=== PATIENT | female | born 1960 | race Caucasian/White ===

== ENCOUNTER 2021-01-16 09:42 | Outpatient (REF) | payer OTHER, SELFPAY ==
[2021-01-16 10:39] LABS: MANUAL DIFF FLAG NO
[2021-01-16 10:54] LABS: Red Blood Count 4.52 X10*6/uL (4.20-5.50); White Blood Count 7.2 X10*3/uL (4.8-10.8)
[2021-01-16 10:55] LABS: Basophils Absolute Auto 0.1 X10*3/uL (0.0-0.2); Basophils Percent Auto 0.8 % (0-2); Eosinophils Absolute Auto 0.1 X10*3/uL (0.0-0.4); Eosinophils Percent Auto 0.8 % (0-4); Hematocrit 33.5 % (37-47); Hemoglobin 9.5 g/dl (12.0-16.0); Imm Gran Abs Auto 0.02 X10*3/uL (0.00-0.03); Imm Gran Pct Auto 0.3 % (0.0-0.4); Lymphocytes Absolute Auto 2.8 X10*3/uL (1.2-4.9); Lymphocytes Percent Auto 38.5 % (20-40); Mean Corpuscular HGB Conc 28.4 g/dl (31.0-35.0); Mean Corpuscular Volume 74.1 fL (80-98); Mean Platelet Volume 9.4 fL (9.4-12.3); Monocytes Absolute Auto 0.6 X10*3/uL (0.1-1.2); Monocytes Percent Auto 8.9 % (2-11); Neutrophils Absolute Auto 3.6 X10*3/uL (2.0-8.3); Neutrophils Percent Auto 50.7 % (45-73); Platelet Count 619 X10*3/uL (160-400); Red Cell Distribution Width 18.4 % (11.0-16.0)
[2021-01-16 11:00] LABS: Alanine Aminotransferase 21 U/L (0-31); Albumin Level 4.4 g/dL (3.5-5.0); Alkaline Phosphatase 131 U/L (39-117); Anion Gap 13 (12-20); Aspartate Amino Transferase 29 U/L (5-31); Bilirubin Total 0.2 mg/dL (0.0-1.0); Carbon Dioxide 27 mmol/L (22-29); Chloride 104 mmol/L (96-108); Cholesterol 219 mg/dL; Estimated Glomerular Filt Rate > 60; Glucose Fasting 81 mg/dL (60-99); HDL Cholesterol 76 mg/dL; LDL Cholesterol Calculated 123 mg/dl; Sodium 139 mmol/L (135-145); Total Protein 8.1 g/dL (6.5-8.0); Triglycerides 104 mg/dL
[2021-01-16 11:03] LABS: Blood Urea Nitrogen 7 mg/dL (9-16); Calcium 9.5 mg/dL (8.4-10.2)
[2021-01-16 11:14] LABS: TSH reflex Free T4 0.44 uIU/mL (0.32-4.0)
== END 2021-01-16 09:43 | disposition home or self-care (01) ==
LOC: HO.LAB 09:42
PROVIDERS: PCP Internal Medicine; Visit Provider Internal Medicine
DX: Z00.01 Encounter for general adult medical examination with abnormal findings (principal); G40.909 Epilepsy, unspecified, not intractable, without status epilepticus; E78.9 Disorder of lipoprotein metabolism, unspecified; D64.9 Anemia, unspecified; K64.4 Residual hemorrhoidal skin tags
CPT/HCPCS: 36415; 80053; 80061; 84443; 85025

== ENCOUNTER 2021-03-13 13:24 | Outpatient (REF) | payer OTHER, SELFPAY ==
--- NOTE | ~2021-03-13 | MM_ITS ---
EXAMINATION: MM SCREENING DIGITAL BREAST TOMOSYNTHESIS, BILATERAL CLINICAL INFORMATION: Screening. Asymptomatic. The lifetime risk of breast cancer based on the Tyrer-Cuzick Model is 8%. COMPARISON: Mammography: 01/19/2019, 06/19/2016 TECHNIQUE: Digital breast tomosynthesis is performed in both the craniocaudal and mediolateral oblique views along with computer-aided detection (CAD). Synthesized 2D images are generated from the tomosynthesis. FINDINGS: There are scattered areas of fibroglandular density (ACR BI-RADS breast composition Category b). There are no significant masses, abnormal calcifications, or other abnormalities. Parenchymal pattern is similar to prior exams. The axilla and skin contours are unremarkable. MM/MM tomosynthesis screening BI IMPRESSION: No mammographic evidence of malignancy. ASSESSMENT: BI-RADS 1: Negative RECOMMENDATION: Routine annual mammography screening. This patient's information was entered into a reminder system with a target due date for their next mammogram.
== END 2021-03-13 13:25 | disposition home or self-care (01) ==
LOC: HO.MAMMO 13:24
PROVIDERS: Visit Provider Internal Medicine
DX: Z12.31 Encounter for screening mammogram for malignant neoplasm of breast (principal)
CPT/HCPCS: 77063; 77067

== ENCOUNTER 2022-03-20 13:22 | Outpatient (REF) | payer OTHER, SELFPAY ==
--- NOTE | ~2022-03-20 | MM_ITS ---
EXAMINATION: MM SCREENING DIGITAL BREAST TOMOSYNTHESIS, BILATERAL CLINICAL INFORMATION: Screening. Asymptomatic. The lifetime risk of breast cancer based on the Tyrer-Cuzick Model is 8.6%. COMPARISON: Mammography: March 13, 2021 and studies dating back to September 09, 2012 TECHNIQUE: Digital breast tomosynthesis is performed in both the craniocaudal and mediolateral oblique views along with computer-aided detection (CAD). Synthesized 2D images are generated from the tomosynthesis. FINDINGS: There are scattered areas of fibroglandular density (ACR BI-RADS breast composition Category b). There are no significant masses, abnormal calcifications, or other abnormalities. MM/MM tomosynthesis screening BI IMPRESSION: There are no significant changes from prior study. ASSESSMENT: BI-RADS 1: Negative RECOMMENDATION: Routine annual mammography screening. This patient's information was entered into a reminder system with a target due date for their next mammogram.
== END 2022-03-20 13:23 | disposition home or self-care (01) ==
LOC: HO.MAMMO 13:22
PROVIDERS: Visit Provider Psychiatry & Neurology Neurology
DX: Z12.31 Encounter for screening mammogram for malignant neoplasm of breast (principal)
CPT/HCPCS: 77063; 77067

== ENCOUNTER 2023-03-23 13:20 | Outpatient (REF) | payer MEDICAID, SELFPAY ==
--- NOTE | ~2023-03-23 | MM_ITS ---
EXAMINATION: MM SCREENING DIGITAL BREAST TOMOSYNTHESIS, BILATERAL CLINICAL INFORMATION: Screening. Asymptomatic. Family history breast cancer, sister. The lifetime risk of breast cancer based on the Tyrer-Cuzick Model is 8%. COMPARISON: Mammography: 03/20/2022, 03/13/2021, 01/19/2019 TECHNIQUE: Digital breast tomosynthesis is performed in both the craniocaudal and mediolateral oblique views along with computer-aided detection (CAD). Synthesized 2D images are generated from the tomosynthesis. Additional right MLO view is provided. FINDINGS: There are scattered areas of fibroglandular density (ACR BI-RADS breast composition Category b). There are no significant masses, abnormal calcifications, or other abnormalities. Parenchymal pattern is similar to prior studies. There is no developing density or architectural abnormality. The axilla and skin contours are unremarkable. No significant changes. MM/MM tomosynthesis screening BI IMPRESSION: No mammographic evidence of malignancy. ASSESSMENT: BI-RADS 1: Negative RECOMMENDATION: Routine annual mammography screening. This patient's information was entered into a reminder system with a target due date for their next mammogram.
== END 2023-03-23 13:21 | disposition home or self-care (01) ==
LOC: HO.MAMMO 13:20
PROVIDERS: Visit Provider Internal Medicine
DX: Z12.31 Encounter for screening mammogram for malignant neoplasm of breast (principal)
CPT/HCPCS: 77063; 77067

== ENCOUNTER 2024-01-25 09:29 | Outpatient (AMB) | payer MEDICAID, SELFPAY ==
[2024-01-25 09:34] VITALS: BP 126/70; BMI 24.7
--- NOTE | 2024-01-25 09:34 | A.OFFPC_ITS ---
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 Accompanied by: Self / Same As Patient Allergies No Known Allergies Allergy (Verified 01/25/24 09:55) Medication List - Last Reconciled 01/25/24 by Mayelin Mcmahon MD phenobarbital 64.8 mg PO TID topiramate 50 mg PO DAILY Tobacco use date assessed: 01/25/24 Fall risk assessment: No Falls in past year Last assessed Fall Risk: 01/25/24 Dental Screening Dental Screen Date: 01/25/24 Did you have a dental visit in the last 12 months?: No Did you have a dental problem in the last 6 months where you did not have access to dental care?: No Was dental information given to patient?: Patient has dentist HPI HPI Comments History of Present Illness Details This is a 63-year-old female with seizures that comes for her physical exam. Last mammogram was March 2023 and has a mammogram scheduled for 2023. Last colonoscopy was 2019 and next colonoscopy should be 2024. Last Pap smear was 2018 and will be referred to OBGYN. Last seizure was November 2023 in which her mother was a witness. She said that she was taking her medications later than usual and this is why she had a seizure. She follows with Neurology. Denies any chest pain or shortness of breath. No change in bowel or bladder habits. Has never had a DEXA scan. [facility] Medical History (Updated 01/25/24 @ 12:04 by Mayelin Mcmahon MD) Anemia Epilepsy Anemia Hemorrhoids, external Lipid disorder Epilepsy Surgical History History of tubal ligation Family History Mother CAD (coronary artery disease) Sister Hypothyroidism History of breast cancer, Onset Age: 50 Brother No problems noted. Brother No problems noted. Brother No problems noted. Brother No problems noted. Brother No problems noted. Brother No problems noted. Brother No problems noted. Son No problems noted. Daughter No problems noted. Daughter No problems noted. Father Leukemia Social History Housing: Apartment Alcohol intake: never Patient Tobacco Use Status: Never used Tobacco e-Cigarette/Vaping Use: Never Used Second Hand Smoke Exposure: No service: No Current occupational status: employed Current occupational exposures/hazards: No Cognitive needs: No Hearing needs: No Vision needs: No Questionnaire PHQ-9 Over the last 2 weeks, how often have you been bothered by any of the following problems? 1. Little interest or pleasure in doing things: not at all 2. Feeling down, depressed, or hopeless: not at all 3. Trouble falling or staying asleep, or sleeping too much: not at all 4. Feeling tired or having little energy: not at all 5. Poor appetite or overeating: not at all 6. Feeling bad about yourself - or that you are a failure or have let yourself or your family down: not at all 7. Trouble concentrating on things, such as reading the newspaper or watching television: not at all 8. Moving or speaking so slowly that other people could have noticed. Or the opposite - being so fidgety or restless that you have been moving around a lot more than usual: not at all 9. Thoughts that you would be better off or of hurting yourself in some way: not at all Total score: 0 Depression Screening Interpretation: Negative Depression Screening Done: Yes 22660 - PHQ-9 Billing: Yes Source: Developed by Drs. Ashvin Kang, Anabella Armas, Monty Rausch and colleagues, with an educational chela from [employer]. Thrive Questionnaire Date Thrive assessed: 01/25/24 I am a: Patient What is your living situation today?: I have a steady place to live Within the past 12 months, did the food you bought not last and you didn't have the money to get more?: Never true Within the past 12 months, did you worry whether your food would run out before you got money to buy more?: Never true Do you have trouble paying for medicines?: No Do you have trouble getting transportation to medical appointments?: No Do you have trouble paying your heating and electricity bill?: No Do you have trouble taking care of your child, family member or friend?: No Do you have trouble with day-to-day activities such as bathing, preparing meals, shopping, managing finances, etc.?: No Are you currently unemployed and looking for a job?: No Are you interested in more education?: No Please select the resources that you would like help with: None Currently or been in a relationship where the following occur: no concerns reported THRIVE Score: 0 AUDIT C Alcohol Use Questionnaire (AUDIT-C) 1. How often do you have a drink containing alcohol?: Never Total Score: 0 RIKKI-7 AMB Questionnaire RIKKI-7 Date RIKKI - 7 assessed: 01/25/24 Feeling nervous, anxious, or on edge: 0 = Not at all Not being able to stop or control worryin = Not at all Worrying too much about different things: 0 = Not at all Trouble relaxin = Not at all Being so restless that it is hard to sit still: 0 = Not at all Becoming easily annoyed or irritable: 0 = Not at all Feeling afraid as if something awful might happen: 0 = Not at all Total RIKKI-7 score (0-4 normal; 5-9 mild; 10-14 moderate; 15-21 severe): 0 Source: Developed by Drs. Ashvin Kang, Anabella Armas, Monty Rausch and colleagues, with an educational chela from [employer]. RIKKI-7 Assessment Billing RIKKI-7 Assessment Tool: RIKKI-7 Assessment 42065 Review of Systems Const All systems reviewed & are unremarkable except as noted in HPI and below Eyes Reports no additional complaints, Denies change in vision and Denies other visual disturbances Card Denies chest pain at rest, Denies chest pain with activity, Denies edema, Denies irregular heart rhythm, Denies claudication, Denies dyspnea, Denies dyspnea on exertion, Denies orthopnea, Denies paroxysmal nocturnal dyspnea and Denies slow heart rate Resp Denies cough, Denies dyspnea and Denies dyspnea on exertion GI Denies abdominal pain, Denies change in bowel habits, Denies excessive flatus, Denies nausea and Denies vomiting Denies urinary incontinence, Denies urinary hesitancy and Denies urinary urgency Physical exam (Primary Care) Vital Signs: Last Vital Signs BP 126/70 01/25/24 09:34 BMI result Body Mass Index 24.7 Tobacco/Smoking Status: Tobacco use Status Tobacco use date assessed 01/25/24 01/25/24 09:40 Patient Tobacco Use Status Never used Tobacco 01/25/24 09:40 e-Cigarette/Vaping Use Never Used 01/25/24 09:40 PHQ-9: PHQ-9 Score PHQ-9: Total score 0 01/25/24 10:00 Depression Screening Interpretation: Negative Thrive Assessment: Date of Thrive Assessment Date Thrive assessed 01/25/24 01/25/24 09:40 Currently or been in a relationship where the following occur: no concerns reported Const Orientation/consciousness: patient oriented x3 HENMT Head: Yes normal to inspection, Yes normocephalic and Yes atraumatic Ears: external ears normal Eyes General: appearance normal, both eyes and all related structures Eyelids: Yes eyelids normal Conjunctivae: conjunctivae normal Neck Neck: Yes normal visual inspection and Yes supple Resp Effort & Inspection: normal respiratory effort Auscultation: clear to auscultation bilaterally Cardio Jugular venous distension: no JVD Rate: regular rate Rhythm: regular rhythm Heart sounds: S1 normal heart sound present and S2 normal heart sound present GI Inspection: Yes normal to inspection Palpation (GI): Soft to palpation and nontender Auscultation: normal bowel sounds Skin General skin exam: no rashes or lesions noted Neuro General: patient oriented x3 and no focal motor deficits Extrem General: Yes full ROM Psych Appearance: grossly normal Assessment and Plan Assessment & Plan (1) Physical exam: Code(s): Z00.00 - Encounter for general adult medical examination without abnormal findings Plan: Repeat in a year. (2) Epilepsy: Code(s): G40.909 - Epilepsy, unspecified, not intractable, without status epilepticus Qualifiers: Epilepsy type: generalized idiopathic Intractability: not intractable Status epilepticus: without status epilepticus Qualified Code(s): G40.309 - Generalized idiopathic epilepsy and epileptic syndromes, not intractable, without status epilepticus Plan: Continue phenobarbital. Follow-up with Neurology. Orders: Orders Lipid Panel Today E78.5 - Hyperlipidemia, unspecified, Z00.00 - Encounter for general adult medical examination without abnormal findings Comprehensive Page. 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
== END 2024-01-25 10:59 | disposition home or self-care (01) ==
PROVIDERS: PCP Internal Medicine; Visit Provider Internal Medicine
DX: Z00.00 Encounter for general adult medical examination without abnormal findings (principal); G40.309 Generalized idiopathic epilepsy and epileptic syndromes, not intractable, without status epilepticus
CPT/HCPCS: 99397

== ENCOUNTER 2024-02-25 08:34 | Outpatient (REF) | payer MEDICAID, SELFPAY ==
[2024-02-25 08:44] LABS: MANUAL DIFF FLAG NO
[2024-02-25 09:07] LABS: Basophils Absolute Auto 0.1 X10*3/uL (0.0-0.2); Basophils Percent Auto 0.8 % (0-2); Eosinophils Absolute Auto 0.2 X10*3/uL (0.0-0.4); Eosinophils Percent Auto 2.2 % (0-4); Hematocrit 30.8 % (37.0-47.0); Hemoglobin 9.1 g/dl (12.0-16.0); Imm Gran Abs Auto 0.03 X10*3/uL (0.00-0.03); Imm Gran Pct Auto 0.3 % (0.0-0.4); Lymphocytes Absolute Auto 2.7 X10*3/uL (1.2-4.9); Lymphocytes Percent Auto 29.7 % (20-40); Mean Corpuscular HGB Conc 29.5 g/dl (31.0-35.0); Mean Corpuscular Hemoglobin 21.5 pg (27.0-33.0); Mean Corpuscular Volume 72.8 fL (80.0-98.0); Mean Platelet Volume 8.8 fL (9.4-12.3); Monocytes Absolute Auto 0.7 X10*3/uL (0.1-1.2); Monocytes Percent Auto 7.2 % (2-11); Neutrophils Absolute Auto 5.5 x10*3/uL (2.0-8.3); Neutrophils Percent Auto 59.8 % (45-73); Platelet Count 663 X10*3/uL (160-400); Red Blood Count 4.23 X10*6/uL (4.20-5.50); Red Cell Distribution Width 18.5 % (11.0-16.0); White Blood Count 9.2 X10*3/uL (4.8-10.8)
[2024-02-25 09:39] LABS: Alanine Aminotransferase 18 U/L (0-31); Alkaline Phosphatase 138 U/L (39-117); Anion Gap 12 (12-20); Aspartate Amino Transferase 27 U/L (5-31); Bilirubin Total 0.2 mg/dL (0.0-1.0); Blood Urea Nitrogen 7 mg/dL (9-16); Calcium 9.2 mg/dL (8.4-10.2); Carbon Dioxide 26 mmol/L (22-29); Chloride 106 mmol/L (96-108); Cholesterol 233 mg/dL (<200); Estimated Glomerular Filt Rate > 60; Glucose Fasting 87 mg/dL (60-99); HDL Cholesterol 67 mg/dL (>40); Iron 16 mcg/dL (30-160); LDL Cholesterol Calculated 142 mg/dL (<100); Percent Iron Saturation 5 % (15-50); Potassium 4.2 mmol/L (3.3-5.1); Sodium 140 mmol/L (135-145); Total Iron Binding Capacity 329 mcg/dL (228-428); Total Protein 8.4 g/dL (6.5-8.0); Triglycerides 122 mg/dL (<150); Unsaturated Iron Binding 313 ug/dL
[2024-02-25 09:55] LABS: Vitamin D 25-OH Total 14.3 ng/mL (>30)
[2024-02-25 11:18] LABS: Folate 14.2 ng/mL (> or = 4.0); Vitamin B12 503 pg/mL (200-900)
== END 2024-02-25 08:35 | disposition home or self-care (01) ==
LOC: HO.LAB 08:34
PROVIDERS: PCP Internal Medicine; Visit Provider Internal Medicine
DX: Z00.00 Encounter for general adult medical examination without abnormal findings (principal); D64.9 Anemia, unspecified; E78.5 Hyperlipidemia, unspecified; E53.8 Deficiency of other specified B group vitamins; E55.9 Vitamin D deficiency, unspecified; G40.909 Epilepsy, unspecified, not intractable, without status epilepticus
CPT/HCPCS: 36415; 80053; 80061; 80184; 82306; 82607; 82746; 83540; 85025

== ENCOUNTER → 2024-03-24 13:00 | Outpatient (BNV) | payer MEDICAID, SELFPAY | PROVIDERS: PCP Internal Medicine; Visit Provider Radiology Diagnostic Radiology | DX: Z12.31 Encounter for screening mammogram for malignant neoplasm of breast (principal) | CPT/HCPCS: 77063; 77067 ==

== ENCOUNTER 2024-03-24 13:05 | Outpatient (REF) | payer MEDICAID, SELFPAY | END 2024-03-24 13:06 | disposition home or self-care (01) | LOC: HO.MAMMO 13:05 | PROVIDERS: PCP Internal Medicine; Visit Provider Internal Medicine | DX: Z12.31 Encounter for screening mammogram for malignant neoplasm of breast (principal) | CPT/HCPCS: 77063; 77067 ==

== ENCOUNTER 2024-04-29 11:29 | Outpatient (REF) | payer MEDICAID, SELFPAY ==
--- NOTE | ~2024-04-29 | MM_ITS ---
EXAMINATION: BONE DENSITOMETRY CLINICAL INDICATION: Unspecified menopausal and perimenopausal disorder. COMPARISON: This is the patient's baseline examination. TECHNIQUE: Using a [employer] DXA System (software version: 13.1) manufactured by [employer], dual-energy x-ray absorptiometry was performed of the lumbar spine and left hip. The images are of good technical quality. Summary results are attached. FINDINGS: LEFT FEMUR, NECK: BMD 0.726 g/cm2, Z-score -0.6, T-score -2.2, osteopenia. LEFT FEMUR, TOTAL: BMD 0.814 g/cm2, Z-score -0.1, T-score -1.5, osteopenia. AP SPINE L1-L4: BMD 1.089 g/cm2, Z-score 1.0, T-score -0.8, normal. IDENTIFIED RISK FACTORS: Menopause. HISTORY OF FRACTURE: None listed. MEDICATIONS: Calcium, vitamin D. MM/XR DEXA axial skeleton IMPRESSION: 1. DIAGNOSIS: Osteopenia based on the lowest T-score value of -2.2 in the femoral neck applying World Health Organization criteria. 2. 10-YEAR FRACTURE RISK PREDICTION, FRAX: Major osteoporotic fracture (clinical spine, forearm, hip or shoulder) 6.8%. Hip fracture 1.3%. 3. Treatment Recommendations: NOF guidelines recommend consideration for treatment in postmenopausal women and men age 50 and older presenting with the following: -A hip or vertebral (clinical or morphometric) fracture. -T-score less than or equal to -2.5 at the femoral neck or spine after appropriate evaluation to exclude secondary causes. -Low bone mass at the hip or spine and a 10-year fracture probability by FRAX of greater than or equal to 3% for hip fracture or greater than or equal to 20% for major osteoporotic fracture based on the [place] adapted WHO algorithm. 4. Other Recommendations: All treatment decisions require clinical judgment and consideration of individual patient factors, including patient preferences, comorbidities, previous drug use, risk factors not captured in the FRAX model (e.g. frailty, falls, vitamin D deficiency, increased bone turnover, interval significant decline in bone density) and possible under or overestimation of fracture risk by FRAX. Additional medical evaluation for secondary cause of low bone mineral density may be appropriate. FUTURE SCAN RECOMMENDATION: People with diagnosed cases of osteoporosis or at high risk for fracture should have regular bone mineral density tests. For patients eligible for Medicare, routine testing is allowed once every 2 years. The testing frequency can be increased to one year for patients who have rapidly progressing disease, those who are receiving or discontinuing medical therapy to restore bone mass, or have additional risk factors.
== END 2024-04-29 11:30 | disposition home or self-care (01) ==
LOC: HO.MAMMO 11:29
PROVIDERS: PCP Internal Medicine; Visit Provider Internal Medicine
DX: Z13.820 Encounter for screening for osteoporosis (principal); Z78.0 Asymptomatic menopausal state
CPT/HCPCS: 77080

== ENCOUNTER 2024-06-01 12:55 | Outpatient (AMB) | payer MEDICAID, SELFPAY ==
--- NOTE | 2024-06-01 13:00 | A.OFFVIS_ITS ---
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 She is doing well with no concerns. Attempting to eat a healthy diet with calcium and vitamin D and stays active with exercise-walks and climbs stair at home. Currently not sexually active. Denies any vaginal dryness or irritation. STI testing offered; she declined. Last pap smear; 2018. Last mammogram; 2023. Colonoscopy is UTD. Denies any family history of ovarian or colon cancer. FH breast cancer-sister. [facility] Medical History Anemia Epilepsy Anemia Hemorrhoids, external Lipid disorder Epilepsy Surgical History History of tubal ligation Family History Mother CAD (coronary artery disease) Sister Hypothyroidism History of breast cancer, Onset Age: 50 Brother No problems noted. Brother No problems noted. Brother No problems noted. Brother No problems noted. Brother No problems noted. Brother No problems noted. Brother No problems noted. Son No problems noted. Daughter No problems noted. Daughter No problems noted. Father Leukemia Social History Housing: Apartment Alcohol intake: never Patient Tobacco Use Status: Never used Tobacco e-Cigarette/Vaping Use: Never Used Second Hand Smoke Exposure: No service: No Current occupational status: employed Current occupational exposures/hazards: No Cognitive needs: No Hearing needs: No Vision needs: No Female Reproductive History Menstrual Menopause type: natural Total pregnancies: 3 Full term: 3 Number of Living Children: 3 Date of last pap smear: 12/14/18 (neg pap and hpv) Date of Mammogram: 03/24/24 (Birad 1) Date of last Bone Density Screenin04/29/24 Review of Systems Const All systems reviewed & are unremarkable except as noted in HPI and below Reports as per HPI Eyes Reports no additional complaints ENT Reports no additional complaints Card Reports no additional complaints Resp Reports no additional complaints GI Reports as per HPI and Reports no additional complaints Reports as per HPI Musc Reports no additional complaints Skin/Breast Reports as per HPI Neuro Reports no additional complaints Psych Reports no additional complaints Endo Reports no additional complaints Victor Hugo/Lymph Reports no additional complaints Aller/Immun Reports no additional complaints Physical Exam Vital Signs: Last Vital Signs BP 114/72 06/01/24 13:02 BMI result Body Mass Index 25.1 Const General: cooperative, healthy appearing, no acute distress, well developed and alert Orientation/consciousness: patient oriented x3 HEENT Head: Yes normal to inspection Eyes General: appearance normal, both eyes and all related structures Neck Neck: Yes normal visual inspection Thyroid: Thyroid normal Chest Chest palpation & inspection: normal inspection of the chest and other (no puckering, dimpling, peau de orange, retraction, discharge, masses) Breast/axilla inspection: normal inspection of the breasts Breast/axilla palpation: normal palpation of the breasts Resp Effort & Inspection: normal respiratory effort GI Inspection: Yes normal to inspection Palpation (GI): Soft to palpation Rectal Exam - Female: deferred General: Yes bladder normal to palpation External Female Exam: normal external appearance and normal appearance of the urethra Speculum Exam - Vagina: normal appearance of the vagina, normal palpation, normal vaginal discharge and vagina atrophic Speculum Exam - Cervix: normal appearance of the cervix and normal palpation Bimanual exam- vagina & uterus: normal bimanual exam, normal palpation, uterine size normal, bladder normal to palpation, normal palpation and non-tender Bimanual Exam- Adnexa, other: no masses Skin General skin exam: no rashes or lesions noted Rashes: no rashes Neuro General: patient oriented x3 Cognition (Neuro): normal cognition Extrem General: Yes normal to inspection Psych Attitude: cooperative Thought process: Normal thought process present Assessment & Plan Assessment & Plan (1) Encounter for annual routine gynecological examination: Code(s): Z01.419 - Encounter for gynecological examination (general) (routine) without abnormal findings Category: Medical Plan Discussed: Current recommendations for pap smears per ASCCP guidelines. Breast awareness, periodic self breast exams and yearly mammogram. Maintain a healthy lifestyle, well balanced diet including Calcium 1,200 mg and Vitamin D 600 IU daily, and routine exercise. Contact the office with any postmenopausal bleeding. Patient verbalizes understanding and agrees to the plan of care. She was given opportunity to ask questions and all questions were answered to the best of my ability. RTO in 1 year for annual repairer switchgear exam. This note is constructed using voice recognition software. While every effort has been made to ensure accuracy, chemical librarian errors may have been included. Coding Level of Care Code Est Pt Prev Care >65y(06675) Diagnoses Encounter for annual routine gynecological examination Z01.419
[2024-06-01 13:02] VITALS: BP 114/72; BMI 25.1
== END 2024-06-01 13:43 | disposition home or self-care (01) ==
LOC: HO.HWS 12:55
PROVIDERS: PCP Internal Medicine; Visit Provider Advanced Practice Midwife
DX: Z01.419 Encounter for gynecological examination (general) (routine) without abnormal findings (principal)
CPT/HCPCS: 99397

== ENCOUNTER → 2024-06-01 12:55 | Outpatient (BNVA) | payer MEDICAID, SELFPAY | PROVIDERS: PCP Internal Medicine; Visit Provider Advanced Practice Midwife | DX: Z01.419 Encounter for gynecological examination (general) (routine) without abnormal findings (principal) | CPT/HCPCS: 99397 ==

== ENCOUNTER 2024-07-26 11:03 | Outpatient (AMB) | payer MEDICAID, SELFPAY ==
[2024-07-26 11:07] VITALS: BP 120/60; PULSE 88; O2SAT 98; BMI 25.8
--- NOTE | 2024-07-26 11:07 | A.OFFPC_ITS ---
Vital Signs 07/26/24 11:07 Height 5 ft 2 in Weight 141 lb BMI 25.8 BP 120/60 Blood Pressure Location Lt brachial Position Sitting Pulse 88 Pulse Source Pulse Oximeter Pulse Oximetry (%) 98 Oxygen Delivery Method Room Air Intake Visit Reasons: seizures Clinical Supervisor Required: No Accompanied by: Self / Same As Patient Allergies No Known Allergies Allergy (Verified 07/26/24 11:25) Medication List - Last Reconciled 07/26/24 by Mayelin Mcmahon MD cholecalciferol (vitamin D3) 50 mcg PO DAILY 90 days ferrous sulfate 325 mg PO DAILY 90 days phenobarbital 64.8 mg PO TID topiramate 50 mg PO DAILY Tobacco use date assessed: 01/25/24 Fall risk assessment: No Falls in past year Last assessed Fall Risk: 07/26/24 Dental Screening Dental Screen Date: 01/25/24 HPI HPI Comments History of Present Illness Details This is a 64-year-old female with epilepsy, anemia and low vitamin-D that comes today for follow-up on her conditions. Has not had a seizure in over 6 months and this is follow by Neurology. On ferrous sulfate for anemia she denies any active bleeding. CBC and vitamin-D will be ordered. On vitamin-D supplements for her low vitamin-D. Denies any chest pain or shortness on breath. [facility] Medical History (Updated 07/26/24 @ 11:43 by Mayelin Mcmahon MD) Anemia Epilepsy Anemia Hemorrhoids, external Lipid disorder Epilepsy Surgical History History of tubal ligation Family History Mother CAD (coronary artery disease) Sister Hypothyroidism History of breast cancer, Onset Age: 50 Brother No problems noted. Brother No problems noted. Brother No problems noted. Brother No problems noted. Brother No problems noted. Brother No problems noted. Brother No problems noted. Son No problems noted. Daughter No problems noted. Daughter No problems noted. Father Leukemia Social History Housing: Apartment Alcohol intake: never Patient Tobacco Use Status: Never used Tobacco e-Cigarette/Vaping Use: Never Used Second Hand Smoke Exposure: No service: No Current occupational status: employed Current occupational exposures/hazards: No Cognitive needs: No Hearing needs: No Vision needs: No Questionnaire Thrive Questionnaire Date Thrive assessed: 01/25/24 AUDIT C Alcohol Use Questionnaire (AUDIT-C) 1. How often do you have a drink containing alcohol?: Never 3. How often do you have six or more drinks on one occasion?: Never Total Score: 0 Score Reviewed/Action Taken: No RIKKI-7 AMB Questionnaire RIKKI-7 Date RKIKI - 7 assessed: 01/25/24 Source: Developed by Drs. Ashvin Kang, Anabella Armas, Monty Rausch and colleagues, with an educational chela from [employer]. Review of Systems Const All systems reviewed & are unremarkable except as noted in HPI and below Card Denies chest pain at rest, Denies chest pain with activity, Denies edema, Denies irregular heart rhythm, Denies claudication, Denies dyspnea, Denies dyspnea on exertion, Denies orthopnea, Denies paroxysmal nocturnal dyspnea and Denies slow heart rate Resp Denies cough, Denies dyspnea and Denies dyspnea on exertion GI Denies abdominal pain, Denies change in bowel habits, Denies excessive flatus, Denies nausea and Denies vomiting Physical exam (Primary Care) Vital Signs: Last Vital Signs Pulse 88 07/26/24 11:07 BP 120/60 07/26/24 11:07 Pulse Ox 98 07/26/24 11:07 Oxygen Delivery Method Room Air 07/26/24 11:07 BMI result Body Mass Index 25.8 Tobacco/Smoking Status: Tobacco use Status Tobacco use date assessed 01/25/24 07/26/24 11:07 Patient Tobacco Use Status Never used Tobacco 07/26/24 11:07 e-Cigarette/Vaping Use Never Used 07/26/24 11:07 Thrive Assessment: Date of Thrive Assessment Date Thrive assessed 01/25/24 07/26/24 11:07 Resp Effort & Inspection: normal respiratory effort Auscultation: clear to auscultation bilaterally Cardio Jugular venous distension: no JVD Rate: regular rate Rhythm: regular rhythm Heart sounds: S1 normal heart sound present and S2 normal heart sound present Extrem General: Yes full ROM Coding Level of Care Code Est Pt Level 3 (40687) Complex EM visit Add On G2211 Diagnoses Nonintractable generalized idiopathic epilepsy without status epilepticus G40.309 Epilepsy type: generalized idiopathic Intractability: not intractable Status epilepticus: without status epilepticus Anemia D64.9 Hypovitaminosis D E55.9 Time Spent (min) 19 Assessment & Plan Assessment & Plan (1) Epilepsy: Code(s): G40.909 - Epilepsy, unspecified, not intractable, without status epilepticus Category: Medical Qualifiers: Epilepsy type: generalized idiopathic Intractability: not intractable Status epilepticus: without status epilepticus Qualified Code(s): G40.309 - Generalized idiopathic epilepsy and epileptic syndromes, not intractable, without status epilepticus Plan: Continue phenobarbital. Follow-up with Neurology. (2) Anemia: Code(s): D64.9 - Anemia, unspecified Category: Medical Plan: Continue ferrous sulfate. Repeat CBC. (3) Hypovitaminosis D: Code(s): E55.9 - Vitamin D deficiency, unspecified Category: Medical Plan: Continue vitamin-D supplements. Orders: Orders Complete Blood Count Auto Diff Today D64.9 - Anemia, unspecified Vitamin D 25-OH Total Today E55.9 - Vitamin D deficiency, unspecified Comprehensive Met. Panel Today G40.309 - Generalized idiopathic epilepsy and epileptic syndromes, not intractable, without status epilepticus IRON PROFILE Today D64.9 - Anemia, unspecified
== END 2024-07-26 11:31 | disposition home or self-care (01) ==
PROVIDERS: PCP Internal Medicine; Visit Provider Internal Medicine
DX: G40.309 Generalized idiopathic epilepsy and epileptic syndromes, not intractable, without status epilepticus (principal); D64.9 Anemia, unspecified; E55.9 Vitamin D deficiency, unspecified

== ENCOUNTER → 2024-07-26 11:03 | Outpatient (BNVA) | payer MEDICAID, SELFPAY | PROVIDERS: PCP Internal Medicine; Visit Provider Internal Medicine | DX: G40.309 Generalized idiopathic epilepsy and epileptic syndromes, not intractable, without status epilepticus (principal); D64.9 Anemia, unspecified; E55.9 Vitamin D deficiency, unspecified | CPT/HCPCS: 99212 ==

== ENCOUNTER 2025-02-04 08:33 | Emergency (ER) | payer MEDICAID, SELFPAY ==
[2025-02-04 08:40] VITALS: BP 138/69; PULSE 94; RESP 16; TEMP 36.3; O2SAT 98; BMI 26.2
--- NOTE | 2025-02-04 08:49 | ED.GENADULT ---
HPI - General Adult General Chief complaint: General Medical Stated complaint: medication Time Seen by Provider: 02/04/25 08:38 Source: patient Mode of arrival: ambulatory Limitations: no limitations History of Present Illness ED Provider: Teodora Gerard NP HPI narrative: Patient is a 65-year-old female with past medical history of epilepsy who presents emergency department requesting assistance with refill of her phenobarbital. She reports that she ran out of the medication yesterday she only took 1 tablet she was supposed to take it 3 times daily. She states that she has not had a seizure in many months but is quite sensitive with any missed doses she has a high chance of seizure occurrence. She has ran out of refills at the pharmacy and her primary care doctor's office is closed as it is the weekend. She offers no physical complaints at this time Related Data Home Medications ?Medication ?Instructions ?Recorded ?Confirmed phenobarbital 64.8 mg tablet 64.8 mg PO TID 01/11/21 07/26/24 topiramate 50 mg tablet 50 mg PO DAILY 01/11/21 07/26/24 Previous Rx's ?Medication ?Instructions ?Recorded cholecalciferol (vitamin D3) 50 50 mcg PO DAILY 90 days #90 caps 02/28/24 mcg (2,000 unit) capsule ferrous sulfate 325 mg (65 mg 325 mg PO DAILY 90 days #90 tabs 09/05/24 iron) tablet phenobarbital 64.8 mg tablet 64.8 mg PO TID #9 tabs 02/04/25 Allergies Allergy/AdvReac Type Severity Reaction Status Date / Time No Known Allergies Allergy Verified 02/04/25 08:42 Review of Systems Review of Systems: Yes all other systems are reviewed and are negative [facility] Past Medical History Attestation statement: The following information was validated with the patient. Source: old records reviewed Medical History Anemia Epilepsy Anemia Hemorrhoids, external Lipid disorder Epilepsy Surgical History History of tubal ligation Family History Family History Mother CAD (coronary artery disease) Sister Hypothyroidism History of breast cancer, Onset Age: 50 Brother No problems noted. Brother No problems noted. Brother No problems noted. Brother No problems noted. Brother No problems noted. Brother No problems noted. Brother No problems noted. Son No problems noted. Daughter No problems noted. Daughter No problems noted. Father Leukemia Social History Social History Housing: Apartment Alcohol intake: never Patient Tobacco Use Status: Never used Tobacco e-Cigarette/Vaping Use: Never Used Second Hand Smoke Exposure: No Advance Directives: No Advance Directives Information Provided: No service: No Current occupational status: employed Current occupational exposures/hazards: No Cognitive needs: No Hearing needs: No Vision needs: No Physical Exam ED Vital Signs: Vital Signs - 24 hr 02/04/25 08:40 02/04/25 09:35 Temperature 97.4 F 97.4 F Pulse Rate 94 94 Respiratory Rate 16 16 Blood Pressure 138/69 138/69 Pulse Oximetry 98 98 Oxygen Delivery Method Room Air Room Air BMI result Body Mass Index 26.2 Appearance: Alert.?Oriented to person, place and time. No acute distress.?Normal affect. Eyes: Pupils equal, round and reactive to light.? CVS: Heart sounds normal. Normal heart rate and rhythm.? Pulses normal.?? Respiratory: No respiratory distress.? Lung sounds clear to auscultation bilaterally?? Skin: Skin warm and dry.? Normal skin color.? ? Extremities: No lower extremity edema.? Neuro: Moves all extremities spontaneously. Sensation intact bilaterally. No focal neuro deficits. Ambulates with normal steady gait. Medications Administered Discontinued Medications Generic Name Dose Route Start Last Admin Trade Name Severianoq PRN Reason Stop Dose Admin Phenobarbital 67.5 mg 02/04/25 09:30 02/04/25 09:30 Phenobarbital 15 Mg Tablet PO 02/04/25 09:31 67.5 mg ONCE ONE Administration Medical Decision Making Medical Decision Making MDM Narrative: Patient is a 65-year-old female with past medical history of epilepsy, anemia, hyperlipidemia who presents emergency department for assistance with medication refill as per HPI. On review of [employer] she last filled her phenobarbital 64.8 mg on 01/03/2025 with a total supply 90 tablets to last for 30 days. Meeting that she would have ran out of the medication yesterday as you mentioned in HPI. She does not have any further refills at the pharmacy and unfortunately given the weekend her primary care doctor's office is closed. She received a dose of her phenobarbital in the emergency department. I have sent a prescription to the pharmacy to cover her through Thursday. She has been advised that she needs to contact your primary care doctor's office directly 1st thing Thursday morning to arrange for assistance with further prescription refill. She offers no physical complaints and her physical examination at this point is 9. All questions answered. Stable for discharge Differential Diagnosis Differential Diagnoses: The differential diagnosis associated with the presentation includes (Epilepsy, seizure disorder, medication refill) Independent Historian Clinical information obtained from an independent historian. History obtained from or confirmed by: Other (Daughter) External Record Review External record reviewed: Other I attest that I have reviewed patients [place], and at the time prescribing the patient a controlled substance is appropriate based off of patients diagnosis and treatment plan. Chronic Conditions Patient?s care impacted by: Other (See narrative above) Discharge Plan Discharge Clinical Impression: Epilepsy Patient Disposition: Home, Self-Care Instructions: Epilepsy (ED) Additional Instructions: You were evaluated in the emergency department requesting assistance with your phenobarbital prescription. Pharmacy records indicate that your prescription was last filled on 01/03/2025 of which you take 3 times daily. It makes sense that you would have ran out of this medication yesterday. You were provided with a dose in the emergency department today. A prescription has been sent for an additional 8 tablets which should cover you through the day on Thursday. This is a controlled medication. It is recommended that you call your primary care doctor's office first thing Thursday to arrange for follow-up/ medication re-fill Prescriptions: New phenobarbital 64.8 mg tablet 64.8 mg PO TID Qty: 9 0RF No Action cholecalciferol (vitamin D3) 50 mcg (2,000 unit) capsule 50 mcg PO DAILY 90 Days Qty: 90 3RF ferrous sulfate 325 mg (65 mg iron) tablet 325 mg PO DAILY 90 Days Qty: 90 1RF topiramate 50 mg tablet 50 mg PO DAILY phenobarbital 64.8 mg tablet 64.8 mg PO TID Referrals: Mayelin Ivory MD [Primary Care Provider] - Interventions: ED Discharge Assessment Last Done: 02/04/25 09:35 Discharge Date/Time: 02/04/25 09:36 Print Language: Estonian
[2025-02-04] MEDS: PHENobarbitaL 15 MG TABLET 67.5 MG PO (09:30)
[2025-02-04 09:35] VITALS: BP 138/69; PULSE 94; RESP 16; TEMP 36.3; O2SAT 98
== END 2025-02-04 09:36 | disposition home or self-care (01) ==
PROVIDERS: Emergency Provider Emergency Medicine; PCP Internal Medicine
DX: G40.909 Epilepsy, unspecified, not intractable, without status epilepticus (principal); Z76.0 Encounter for issue of repeat prescription; Z79.899 Other long term (current) drug therapy
CPT/HCPCS: 99282; 99283

== ENCOUNTER 2025-02-06 09:20 | Outpatient (AMB) | payer OTHER, MEDICAID, SELFPAY ==
--- NOTE | 2025-02-06 09:27 | MHC.PC.OV ---
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 by: Grand Child Allergies No Known Allergies Allergy (Verified 02/06/25 09:52) Medication List - Last Reconciled 02/06/25 by Mayelin Mcmahon MD phenobarbital 64.8 mg PO TID topiramate 50 mg PO DAILY Tobacco use date assessed: 02/06/25 Fall risk assessment: No Falls in past year Last assessed Fall Risk: 02/06/25 Dental Screening Dental Screen Date: 02/06/25 Did you have a dental visit in the last 12 months?: No Did you have a dental problem in the last 6 months where you did not have access to dental care?: No Was dental information given to patient?: Patient has dentist HPI HPI Comments History of Present Illness Details The patient is a 65-year-old female presenting with the need for a yearly physical exam and concerns regarding her seizure medication management. She experienced dizziness recently due to an incomplete refill of phenobarbital, but no seizure activity occurred during this period. Examination of her medication history reveals that she receives both phenobarbital and topiramate as part of her seizure management regimen, but she has not engaged in recent neurological follow-up. Her immunization record is up to date except for the pneumococcal vaccine, which is recommended due to her age. Recent health screenings show compliance with mammography and bone density scanning schedules. Additionally, her colonoscopy is due this year with plans to schedule accordingly. Her family history reveals significant cardiovascular disease and a history of cancer, specifically hematologic in her father. The patient has previously shown signs of anemia, with ongoing investigation and identification of hyperlipidemia. Lifestyle adjustments include taking daily multivitamins to address slight deficiencies noted in her prior bloodwork. - Annual physical exam conducted. - Tetanus vaccine administered in 2016; next due in 2026. - Pneumococcal vaccine recommended due to age; patient informed. - Mammogram completed last summer; ongoing follow-up scheduled for this year. - Bone density test to be scheduled for 2025. - Colonoscopy was last done in 2019; recommended to be repeated this year. - Lab results indicate low hemoglobin and elevated cholesterol; vitamin supplementation discussed. [facility] Medical History Anemia Epilepsy Anemia Hemorrhoids, external Lipid disorder Epilepsy Surgical History History of tubal ligation Family History Mother CAD (coronary artery disease) Sister Hypothyroidism History of breast cancer, Onset Age: 50 Brother No problems noted. Brother No problems noted. Brother No problems noted. Brother No problems noted. Brother No problems noted. Brother No problems noted. Brother No problems noted. Son No problems noted. Daughter No problems noted. Daughter No problems noted. Father Leukemia Social History Housing: Apartment Alcohol intake: never Patient Tobacco Use Status: Never used Tobacco e-Cigarette/Vaping Use: Never Used Second Hand Smoke Exposure: No service: No Current occupational status: employed Current occupational exposures/hazards: No Cognitive needs: No Hearing needs: No Vision needs: No Questionnaire PHQ-9 Over the last 2 weeks, how often have you been bothered by any of the following problems? 1. Little interest or pleasure in doing things: not at all 2. Feeling down, depressed, or hopeless: not at all 3. Trouble falling or staying asleep, or sleeping too much: not at all 4. Feeling tired or having little energy: not at all 5. Poor appetite or overeating: not at all 6. Feeling bad about yourself - or that you are a failure or have let yourself or your family down: not at all 7. Trouble concentrating on things, such as reading the newspaper or watching television: not at all 8. Moving or speaking so slowly that other people could have noticed. Or the opposite - being so fidgety or restless that you have been moving around a lot more than usual: not at all 9. Thoughts that you would be better off or of hurting yourself in some way: not at all Total score: 0 Depression Screening Interpretation: Negative Depression Screening Done: Yes 83039 - PHQ-9 Billing: Yes Source: Developed by Drs. Ashvin Kang, Anabella Armas, Monty Rausch and colleagues, with an educational chela from [employer]. Thrive Questionnaire Date Thrive assessed: 02/06/25 I am a: Patient What is your living situation today?: I have a steady place to live Within the past 12 months, did the food you bought not last and you didn't have the money to get more?: Never true Within the past 12 months, did you worry whether your food would run out before you got money to buy more?: Never true Do you have trouble paying for medicines?: I choose not to answer this question Do you have trouble getting transportation to medical appointments?: I choose not to answer this question Do you have trouble paying your heating and electricity bill?: No Do you have trouble taking care of your child, family member or friend?: No Do you have trouble with day-to-day activities such as bathing, preparing meals, shopping, managing finances, etc.?: No Are you currently unemployed and looking for a job?: No Are you interested in more education?: No Please select the resources that you would like help with: None Currently or been in a relationship where the following occur: No concerns reported THRIVE Score: 0 AUDIT C Alcohol Use Questionnaire (AUDIT-C) 1. How often do you have a drink containing alcohol?: Never Total Score: 0 Score Reviewed/Action Taken: No RIKKI-7 AMB Questionnaire RIKKI-7 Date RIKKI - 7 assessed: 02/06/25 Feeling nervous, anxious, or on edge: 0 = Not at all Not being able to stop or control worryin = Not at all Worrying too much about different things: 0 = Not at all Trouble relaxin = Not at all Being so restless that it is hard to sit still: 0 = Not at all Becoming easily annoyed or irritable: 0 = Not at all Feeling afraid as if something awful might happen: 0 = Not at all Total RIKKI-7 score (0-4 normal; 5-9 mild; 10-14 moderate; 15-21 severe): 0 Source: Developed by Drs. Ashvin Kang, Anabella Armas, Monty Rausch and colleagues, with an educational chela from [employer]. RIKKI-7 Assessment Billing RIKKI-7 Assessment Tool: RIKKI-7 Assessment 99650 Review of Systems Const All systems reviewed & are unremarkable except as noted in HPI and below Card Denies chest pain at rest, Denies chest pain with activity, Denies edema, Denies irregular heart rhythm, Denies claudication, Denies dyspnea, Denies dyspnea on exertion, Denies orthopnea, Denies paroxysmal nocturnal dyspnea and Denies slow heart rate Resp Denies cough, Denies dyspnea and Denies dyspnea on exertion GI Denies abdominal pain, Denies change in bowel habits, Denies excessive flatus, Denies nausea and Denies vomiting Physical exam (Primary Care) Vital Signs: Last Vital Signs BP 130/68 02/06/25 09:28 BMI result Body Mass Index 26.0 Tobacco/Smoking Status: Tobacco use Status Tobacco use date assessed 02/06/25 02/06/25 09:29 Patient Tobacco Use Status Never used Tobacco 02/06/25 09:29 e-Cigarette/Vaping Use Never Used 02/06/25 09:29 PHQ-9: PHQ-9 Score PHQ-9: Total score 0 02/06/25 09:56 Depression Screening Interpretation: Negative Thrive Assessment: Date of Thrive Assessment Date Thrive assessed 02/06/25 02/06/25 09:29 Currently or been in a relationship where the following occur: No concerns reported [facility] Head: Yes normal to inspection, Yes normocephalic and Yes atraumatic Ears: external ears normal Eyes General: appearance normal, both eyes and all related structures Eyelids: Yes eyelids normal Conjunctivae: conjunctivae normal Neck Neck: Yes normal visual inspection and Yes supple Resp Effort & Inspection: normal respiratory effort Auscultation: clear to auscultation bilaterally Cardio Jugular venous distension: no JVD Rate: regular rate Rhythm: regular rhythm Heart sounds: S1 normal heart sound present and S2 normal heart sound present GI Inspection: Yes normal to inspection Palpation (GI): Soft to palpation and nontender Auscultation: normal bowel sounds Skin General skin exam: no rashes or lesions noted Neuro General: no focal motor deficits Extrem General: Yes full ROM Psych Appearance: grossly normal Coding Level of Care Code Est Pt Level 3 (48095) Est Pt Prev Care >65y(15731) Diagnoses Physical exam Z00.00 Nonintractable generalized idiopathic epilepsy without status epilepticus G40.309 Epilepsy type: generalized idiopathic Intractability: not intractable Status epilepticus: without status epilepticus Additional Codes RIKKI-7 Assessment Billing - RIKKI-7 Assessment Tool: RIKKI-7 Assessment 03689 ([id number]) PHQ-9 - 14007 - PHQ-9 Billing: Yes ([id number]) Time Spent (min) 33 Assessment & Plan Assessment & Plan (1) Physical exam: Code(s): Z00.00 - Encounter for general adult medical examination without abnormal findings Category: Medical (2) Epilepsy: Code(s): G40.909 - Epilepsy, unspecified, not intractable, without status epilepticus Category: Medical Qualifiers: Epilepsy type: generalized idiopathic Intractability: not intractable Status epilepticus: without status epilepticus Qualified Code(s): G40.309 - Generalized idiopathic epilepsy and epileptic syndromes, not intractable, without status epilepticus Plan The plan involves rectifying the seizure medication issue and reinforcing the need to see a neurologist annually for continued seizure disorder management. Vaccination against pneumonia is advised given her age, supporting preventive care. Anemia evaluation will continue with further blood tests, and focus on dietary management is planned for her hyperlipidemia. Scheduling for a colonoscopy is recommended due to it being due this year. Continued multivitamin use and lifestyle changes are advised to support anemia management and cholesterol level reductions. Regular follow-up appointments for monitoring these conditions are emphasized. Patient was informed and verbally consented to the use of an ambient scribe for clinic note documentation during this visit. I discussed the current management plan for the patient?s seizure disorder, stressing the importance of adhering to prescribed medication regimens and seeing a neurologist annually. The missed doses of phenobarbital were addressed with plans for proper pharmacy reconciliation, and options for seizure management were discussed. I elaborated on the importance of vaccination, specifically for pneumonia, due to her age. In light of her family background and personal health history, additional attention was given to cholesterol management and investigating her anemia further. The necessity of routine screenings such as the impending colonoscopy was emphasized, and ongoing preventive care through regular testing and vitamin supplementation was reviewed. Consent for interventions and ongoing monitoring was obtained, with a focus on holistic health management. Orders: Orders Complete Blood Count Auto Diff Today D64.9 - Anemia, unspecified Lipid Panel Today E78.5 - Hyperlipidemia, unspecified IRON PROFILE Today D64.9 - Anemia, unspecified Vitamin D 25-OH Total Today E55.9 - Vitamin D deficiency, unspecified Comprehensive [place]. Panel Fast Today G40.309 - Generalized idiopathic epilepsy and epileptic syndromes, not intractable, without status epilepticus Referrals Neurology Referral G40.309 - Generalized idiopathic epilepsy and epileptic syndromes, not intractable, without status epilepticus Open Access Screening Colonoscopy Referral Z12.12 - Encounter for screening for malignant neoplasm of rectum Medications: Changed From phenobarbital 64.8 mg PO TID 9 tabs 0RF To phenobarbital 64.8 mg PO TID 30 days 90 tabs 0RF From topiramate 50 mg PO DAILY To topiramate 50 mg PO DAILY 30 days 30 tabs 3RF Patient Instructions: - Ensure to take seizure medications as prescribed; contact pharmacy to correct refill discrepancy. - Schedule follow-up with a neurologist. - Plan for the pneumococcal vaccination during nurse visit. - Schedule colonoscopy for this year. - Continue daily multivitamin; consider dietary changes to manage cholesterol levels. - Report any signs of dizziness or seizures immediately.
[2025-02-06 09:28] VITALS: BP 130/68; BMI 26.0
== END 2025-02-06 10:07 | disposition home or self-care (01) ==
LOC: HO.HMCH 09:20
PROVIDERS: PCP Internal Medicine; Visit Provider Internal Medicine
DX: Z00.00 Encounter for general adult medical examination without abnormal findings (principal); G40.309 Generalized idiopathic epilepsy and epileptic syndromes, not intractable, without status epilepticus

== ENCOUNTER → 2025-02-06 09:20 | Outpatient (BNVA) | payer OTHER, SELFPAY | PROVIDERS: PCP Internal Medicine; Visit Provider Internal Medicine | DX: Z00.00 Encounter for general adult medical examination without abnormal findings (principal); G40.309 Generalized idiopathic epilepsy and epileptic syndromes, not intractable, without status epilepticus | CPT/HCPCS: 96127 ==

== ENCOUNTER 2025-06-05 09:25 | Outpatient (REF) | payer OTHER, SELFPAY ==
--- NOTE | ~2025-06-05 | MM_ITS ---
EXAMINATION: MM SCREENING DIGITAL BREAST TOMOSYNTHESIS, BILATERAL CLINICAL INFORMATION: Screening. Asymptomatic. COMPARISON: Mammography: Comparison is made with available priors TECHNIQUE: Digital breast mammography with tomosynthesis is performed in both the craniocaudal and mediolateral oblique views along with computer-aided detection (CAD). FINDINGS: There are scattered areas of fibroglandular density (ACR BI-RADS breast composition Category b). There are no significant masses, abnormal calcifications, or other abnormalities. MM/MM tomosynthesis screening BI IMPRESSION: No mammographic evidence of malignancy. ASSESSMENT: BI-RADS BI-RADS 1 - Negative RECOMMENDATION: Routine annual mammography screening. 1 year F/U This examination should not preclude the clinical evaluation of a suspicious palpable abnormality. This patient's information was entered into a reminder system with a target due date for their next mammogram. Electronically signed by: Chloe Maldonado DO 06/07/2025 12:22 PM EDT
== END 2025-06-05 09:26 | disposition home or self-care (01) ==
LOC: HO.MAMMO 09:25
PROVIDERS: PCP Internal Medicine; Visit Provider Internal Medicine
DX: Z12.31 Encounter for screening mammogram for malignant neoplasm of breast (principal)
CPT/HCPCS: 77063; 77067

== ENCOUNTER → 2025-06-05 09:45 | Outpatient (BNV) | payer OTHER, SELFPAY | PROVIDERS: PCP Internal Medicine; Visit Provider Internal Medicine | DX: Z12.31 Encounter for screening mammogram for malignant neoplasm of breast (principal) | CPT/HCPCS: 77063; 77067 ==

== ENCOUNTER 2025-08-08 13:29 | Outpatient (AMB) | payer OTHER, MEDICAID, SELFPAY ==
--- NOTE | 2025-08-08 13:31 | A.OFFPC_ITS ---
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 by: Self / Same As Patient Allergies No Known Allergies Allergy (Verified 08/08/25 13:41) Medication List - Last Reconciled 08/08/25 by Mayelin Mcmahon MD phenobarbital 64.8 mg PO TID 7 days topiramate 50 mg PO DAILY 30 days Tobacco use date assessed: 08/08/25 Fall risk assessment: No Falls in past year Last assessed Fall Risk: 08/08/25 Dental Screening Dental Screen Date: 08/08/25 Did you have a dental visit in the last 12 months?: No Did you have a dental problem in the last 6 months where you did not have access to dental care?: No Was dental information given to patient?: Patient has dentist HPI HPI Comments History of Present Illness Details The patient is a 65-year-old female presenting for a follow-up and medication refill. She has a history of a seizure disorder, which is managed with phenobarbital and Topamax. The patient reports being seizure-free for over six months. She recently ran out of her phenobarbital and received a temporary 7-day emergency supply over the weekend. Her blood pressure was noted to be borderline high at today's visit, and higher than her previous measurement. Her only past surgery is a tubal ligation. She has no known medication allergies. [facility] Medical History Anemia Epilepsy Anemia Hemorrhoids, external Lipid disorder Epilepsy Surgical History History of tubal ligation Family History Mother CAD (coronary artery disease) Sister Hypothyroidism History of breast cancer, Onset Age: 50 Brother No problems noted. Brother No problems noted. Brother No problems noted. Brother No problems noted. Brother No problems noted. Brother No problems noted. Brother No problems noted. Son No problems noted. Daughter No problems noted. Daughter No problems noted. Father Leukemia Social History Housing: Apartment Alcohol intake: never Patient Tobacco Use Status: Never used Tobacco e-Cigarette/Vaping Use: Never Used Second Hand Smoke Exposure: No service: No Current occupational status: employed Current occupational exposures/hazards: No Cognitive needs: No Hearing needs: No Vision needs: No Questionnaire Thrive Questionnaire Date Thrive assessed: 02/06/25 I am a: Patient What is your living situation today?: I have a steady place to live Within the past 12 months, did the food you bought not last and you didn't have the money to get more?: Never true Within the past 12 months, did you worry whether your food would run out before you got money to buy more?: Never true Do you have trouble paying for medicines?: I choose not to answer this question Do you have trouble getting transportation to medical appointments?: I choose not to answer this question Do you have trouble paying your heating and electricity bill?: No Do you have trouble taking care of your child, family member or friend?: No Do you have trouble with day-to-day activities such as bathing, preparing meals, shopping, managing finances, etc.?: No Are you currently unemployed and looking for a job?: No Are you interested in more education?: No Please select the resources that you would like help with: None Currently or been in a relationship where the following occur: No concerns reported THRIVE Score: 0 AUDIT C Alcohol Use Questionnaire (AUDIT-C) 1. How often do you have a drink containing alcohol?: Never 3. How often do you have six or more drinks on one occasion?: Never Total Score: 0 Score Reviewed/Action Taken: No RIKKI-7 AMB Questionnaire RIKKI-7 Date RIKKI - 7 assessed: 02/06/25 Source: Developed by Drs. Ashvin Kang, Anabella Armas, Monty Rausch and colleagues, with an educational chela from [employer]. Review of Systems Const All systems reviewed & are unremarkable except as noted in HPI and below Card Denies chest pain at rest, Denies chest pain with activity, Denies edema, Denies irregular heart rhythm, Denies claudication, Denies dyspnea, Denies dyspnea on exertion, Denies orthopnea, Denies paroxysmal nocturnal dyspnea and Denies slow heart rate Resp Denies cough, Denies dyspnea and Denies dyspnea on exertion GI Denies abdominal pain, Denies change in bowel habits, Denies excessive flatus, Denies nausea and Denies vomiting Denies urinary incontinence, Denies urinary hesitancy and Denies urinary urgency Physical exam (Primary Care) Vital Signs: Last Vital Signs Pulse 94 08/08/25 13:32 BP 140/82 H 08/08/25 13:32 Pulse Ox 97 08/08/25 13:32 Oxygen Delivery Method Room Air 08/08/25 13:32 BMI result Body Mass Index 25.8 Tobacco/Smoking Status: Tobacco use Status Tobacco use date assessed 08/08/25 08/08/25 13:39 Patient Tobacco Use Status Never used Tobacco 08/08/25 13:39 e-Cigarette/Vaping Use Never Used 08/08/25 13:39 Thrive Assessment: Date of Thrive Assessment Date Thrive assessed 02/06/25 08/08/25 13:39 Currently or been in a relationship where the following occur: No concerns reported Resp Effort & Inspection: normal respiratory effort Auscultation: clear to auscultation bilaterally Cardio Jugular venous distension: no JVD Rate: regular rate Rhythm: regular rhythm Heart sounds: S1 normal heart sound present and S2 normal heart sound present Extrem General: Yes full ROM Coding Level of Care Code Est Pt Level 3 (75108) Complex EM visit Add On G2211 Diagnoses Nonintractable generalized idiopathic epilepsy without status epilepticus G40.309 Epilepsy type: generalized idiopathic Intractability: not intractable Status epilepticus: without status epilepticus Time Spent (min) 18 Assessment & Plan Assessment & Plan (1) Epilepsy: Code(s): G40.909 - Epilepsy, unspecified, not intractable, without status epilepticus Category: Medical Qualifiers: Epilepsy type: generalized idiopathic Intractability: not intractable Status epilepticus: without status epilepticus Qualified Code(s): G40.309 - Generalized idiopathic epilepsy and epileptic syndromes, not intractable, without status epilepticus Plan Plan 1. Epilepsy, unspecified, not intractable, without status epilepticus G40.909 HCC 79 The patient's seizure disorder is stable, and she has been seizure-free for over six months on Topamax and phenobarbital. Topamax is prescribed with refills, while phenobarbital, a controlled substance, requires monthly prescriptions. A 30-day supply of phenobarbital was electronically prescribed to the [facility] on [facility]. The patient was counseled on the importance of requesting refills for controlled substances during regular office hours. 2. Elevated Blood Pressure The patient's blood pressure was noted to be borderline elevated and higher than her last visit. Will continue to monitor. 3. Health Maintenance The pneumococcal vaccine, which is recommended for patients over 65, was discussed. The patient also declined the influenza vaccine, expressing concern about post-vaccination illness. The patient was reminded to complete her pending laboratory tests. Orders: Orders Vitamin D 25-OH Total 6 Months E55.9 - Vitamin D deficiency, unspecified IRON PROFILE 6 Months D64.9 - Anemia, unspecified Complete Blood Count Auto Diff 6 Months D64.9 - Anemia, unspecified Lipid Panel 6 Months E78.5 - Hyperlipidemia, unspecified Comprehensive [place]. Panel Fast 6 Months G40.309 - Generalized idiopathic epilepsy and epileptic syndromes, not intractable, without status epilepticus Medications: Changed From phenobarbital 64.8 mg PO TID 7 days 21 tabs 0RF To phenobarbital 64.8 mg PO TID 90 tabs 0RF 30 days
[2025-08-08 13:32] VITALS: BP 140/82; PULSE 94; O2SAT 97; BMI 25.8
== END 2025-08-08 13:50 | disposition home or self-care (01) ==
LOC: HO.HMCH 13:30
PROVIDERS: PCP Internal Medicine; Visit Provider Internal Medicine
DX: G40.309 Generalized idiopathic epilepsy and epileptic syndromes, not intractable, without status epilepticus (principal)

== ENCOUNTER → 2025-08-08 13:29 | Outpatient (BNVA) | payer OTHER, SELFPAY | PROVIDERS: PCP Internal Medicine; Visit Provider Internal Medicine | DX: G40.309 Generalized idiopathic epilepsy and epileptic syndromes, not intractable, without status epilepticus (principal) | CPT/HCPCS: 99212 ==